=== PATIENT | female | born 1960 | race African-American/Black ===

== ENCOUNTER 2017-01-28 13:01 | Emergency (ER) | payer BC ==
[~2017-01-28] VITALS: Ht 152.4 cm; Wt 115.2 kg
[2017-01-28 14:06] LABS: Basophils # (auto) 0 uL; Basophils % (auto) 0.5 % (0.0-2.0); CONDITION Y; Eosinophils # (auto) 0.1 uL; Eosinophils % (auto) 1.1 % (0.0-7.0); Hematocrit 39.3 % (36.0-46.0); Hemoglobin 12.8 g/dL (12.2-16.2); Lymphocytes % (auto) 30.6 % (10.0-50.0); Mean Corpuscular Hemoglobin 27.5 pg (28.0-32.0); Mean Corpuscular Hgb Conc. 32.5 g/dL (32.0-36.0); Mean Corpuscular Volume 84.6 fL (80.0-100.0); Mean Platelet Volume 9.5 fL (7.4-10.4); Monocytes # (auto) 0.3 uL; Monocytes % (auto) 4.5 % (0.0-12.0); Neutrophils # (auto) 4.1 uL; Neutrophils % (auto) 63.3 % (37.0-80.0); Platelet Count (auto) 353 10^3/uL (140-450); Red Cell Distribution Width 13.8 % (11.6-16.0); White Blood Cell 6.5 10^3/uL (4.4-10.8)
[2017-01-28 14:27] LABS: Albumin 3.7 g/dL (3.4-5.0); Alkaline Phosphatase 102 U/L (45-117); Anion Gap 8 (5-15); Aspartate Aminotransferase 10 U/L (15-37); BUN/Creatinine Ratio 12.5; Bilirubin, Total 0.2 mg/dL (0.2-1.0); Blood Urea Nitrogen 12 mg/dL (7-18); Calcium 9.1 mg/dL (8.5-10.1); Carbon Dioxide 30 mmol/L (21-32); Chloride 104 mmol/L (98-107); GFR African American 77 mL/min; GFR Non-African American 64 mL/min; Glucose 100 mg/dL (74-106); Potassium 3.5 mmol/L (3.5-5.1); Sodium 142 mmol/L (136-145); Total Protein 8.3 g/dL (6.4-8.2)
[2017-01-28 15:10] VITALS: BP 133/75
== END 2017-01-28 15:15 | disposition home or self-care (01) ==
LOC: ER 13:01
DX: R07.89 Other chest pain (principal); E11.9 Type 2 diabetes mellitus without complications; I10 Essential (primary) hypertension; M19.90 Unspecified osteoarthritis, unspecified site; Z90.49 Acquired absence of other specified parts of digestive tract; Z98.51 Tubal ligation status
CPT/HCPCS: 36415; 71020; 80053; 84484; 85025; 93005

== ENCOUNTER 2023-09-08 20:37 | Emergency (ER) | payer BC, OTHER ==
[~2023-09-08] VITALS: Ht 154.9 cm; Wt 106.4 kg
[2023-09-09] MEDS ORDERED: NABU-72 PO (00:59)
[2023-09-09] MEDS ORDERED: CYCL-837 PO (00:59)
[2023-09-09 01:10] VITALS: BP 132/97; PULSE 76; RESP 20; TEMP 98.6; O2SAT 98
[2023-09-09] MEDS: KETOROLAC TROMETH 30 MG/ML 1ML VIAL IM ONE (01:45)
== END 2023-09-09 01:50 | disposition home or self-care (01) ==
LOC: ER 20:37
DX: G44.209 Tension-type headache, unspecified, not intractable (principal); M43.6 Torticollis; E11.9 Type 2 diabetes mellitus without complications; I10 Essential (primary) hypertension; Z98.51 Tubal ligation status; Z88.1 Allergy status to other antibiotic agents; Z90.49 Acquired absence of other specified parts of digestive tract
CPT/HCPCS: 70450; 96372; 99285; J1885